=== PATIENT | female | born 1970 | race Caucasian/White ===

== ENCOUNTER → 2016-09-09 | Outpatient (CLI) | payer BC ==
[~2016-09-09] MED LIST: LOSA100T26 PO; SIMV40TA4 PO
--- NOTE | 2016-09-09 13:59 | MAMMOGRAPHY REPORT ---
UNILATERAL RIGHT DIGITAL DIAGNOSTIC MAMMOGRAM TOMOSYNTHESIS AND TARGETED RIGHT ULTRASOUND: 09/09/2016 CLINICAL HISTORY: Callback from screening mammogram for a right medial breast mass. TECHNIQUE: Breast tomosynthesis in addition to standard 2D mammography was performed. Spot eliazar sebastien right CC and MLO tomosynthesis images including C view were obtained. COMPARISON: Comparison is made to exams dated: 08/27/2016 mammogram, 05/14/2015 mammogram, 3 mammogram, 10/16/2014 mammogram, 04/06/2011 mammogram, and 04/02/2010 mammogram - [facility]. BREAST COMPOSITION: There are scattered areas of fibroglandular density in the right breast. FINDINGS: The previously described triangular mass seen within the right lower inner breast, best s een on the cc view, is less prominent and no longer clearly evident on the spot compression views. Nodularity seen more posteriorly in the right medial breast is stable compared to prior exams includ ing the 2012 exam. Targeted ultrasound was performed of the right lower inner quadrant of the region of the mammographi c mass. No suspicious masses or other suspicious sonographic abnormalities are evident. No correla te for the mammographic mass is seen. IMPRESSION: ACR BI-RADS CATEGORY 2: BENIGN, TARGETED ULTRASOUND ACR BI-RADS CATEGORY 2: BENIGN The previously described right medial breast mass is less prominent and no longer clearly evident ma mmographically, without a corresponding sonographic abnormality evident. Findings are benign and li yvette represent a cyst which has decreased/resolved. There is no mammographic or targeted sonographi c evidence of malignancy. A 1 year screening mammogram is recommended. The patient has been verball y notified of the results. Approximately 10% of breast cancers are not detected with mammography. A negative mammographic repor t should not delay biopsy if a clinically suggestive mass is present. Shaneka Martinez M.D. ah/:09/09/2016 12:14:31 Spinning Supervisor: Elida BARAJAS(Regine)(M), [facility] letter sent: Normal 1/2 BI-RADS Code: ACR BI-RADS Category 2: Benign Ultrasound BI-RADS: ACR BI-RADS Category 2: Benign
== END | disposition home or self-care (01) ==
LOC: C.MAMM 09:59
PROVIDERS: ATTEND Obstetrics & Gynecology
DX: Z09 Encounter for follow-up examination after completed treatment for conditions other than malignant neoplasm (principal); N63 Unspecified lump in breast

== ENCOUNTER → 2016-09-18 | Outpatient (CLI) | payer BC ==
--- NOTE | 2016-09-18 11:18 | DIAGNOSTIC IMAGING REPORT ---
CHEST 2 VIEWS ROUTINE CLINICAL HISTORY: Asthma. Shortness of breath. COMPARISON STUDY: No previous studies for comparison. FINDINGS: Lung volumes are normal. Lungs are clear. There is no pneumothorax or pleural effusion. Cardiac size is normal. Mediastinal contours are normal. There is no evidence of pulmonary edema. IMPRESSION: No acute cardiopulmonary findings. Electronically signed by: Man Durant M.D. 09/18/2016 11:16 AM Dictated Date/Time: 09/18/2016 11:15 AM
== END | disposition home or self-care (01) ==
LOC: C.RADBC 11:02
PROVIDERS: ATTEND Family Medicine
DX: J45.901 Unspecified asthma with (acute) exacerbation (principal)

== ENCOUNTER → 2016-10-15 | Outpatient (CLI) | payer BC ==
[~2016-10-15] VITALS: Ht 152.4 cm; Wt 100.0 kg
[2016-10-15 13:37] VITALS: BP 126/83; PULSE 83; Ht 152.4 cm; Wt 100.0 kg
== END | disposition home or self-care (01) ==
LOC: C.NEUR 13:13
PROVIDERS: ATTEND Internal Medicine Pulmonary Disease
DX: G47.61 Periodic limb movement disorder (principal); R40.0 Somnolence

== ENCOUNTER → 2016-10-29 | Outpatient (CLI) | payer BC ==
--- NOTE | 2016-10-30 05:47 | PAP/PSG TECHNICIAN REPORT ---
[facility] Chairman Ceo Polysomnogram Report Study name: None Report date: 10/30/2016 Study date: 10/29/2016 Referring Physician: DR. THEODORE Name: ZENAIDA HAWTHORNE Interpreting Physician: Paxton Wright M.D. Date of : 1970 Chairman Ceo: Vika Jean [facility]. Sex: Female Age: 45 Study Type: PSG Weight: 220 lbs 15.5 in Height: 45 years, Height 5' 0" Neck Circum: BMI: 42.96 Medications: ASPIRIN 81 MG, FISH OIL, LISINOPRIL-HCTZ 10-12.5 MG, MULTI VIT, PROAIR HFA, SIMVASTATIN 40 MG, VALTREX 1 GM Patient History 45 yr-old female here for a baseline/split study. She has a history of excessive daytime sleepiness and loud snoring. Her [place] scale is 17. The test was started on room air. ETCO2 testing was not utilized during this study. Room 3 Parameters Monitored NPSG: E1-M2, E2-M1, Fp1-M2, Fp2-M1, F3-M2, F4-M2, F4-M1, C3-M2, C4-M2, C4-M1, O1-M2, O2-M2, O2-M1, T3-M2, T4-M1, P3-M2, P4-M1, CHIN1, CHIN2, HR, EKG, Legs, PFLOW, SNOR, FLOW, CFLOW, Tidal Volume, THOR, ABDO, SpO2, PLTH, CPRESS, ETCO2 Wave, ETCO2, pH Sleep Architecture Sleep Stages Time at Lights Off 10:41:47 PM STAGES Time (min.) TST (%) Time at Lights On 5:23:47 AM Wake 27.5 -- Total Recording Time (TRT) 402.00 min. N1 14.5 4 Total Sleep Period (TSP) 381.5 min. N2 243.5 65 Total Sleep Time (TST) 374.5min. N3 43.5 12 Awake Time 27.5 min. REM 73.0 19 Wake after Sleep Onset 20.0 min. Sleep Efficiency (SE) 93 % Sleep Onset Latency (CORRIE) 7.5 min. Number of Stage 1 Shifts None Awakenings 8 Stage Changes 48 Number of REM periods 4 REM 73.0 19 REM Latency 81.5 min. NREM 301.5 81 Body Position Analysis Supine Right Left Side Prone Vertical Total Sleep Time (min.) 88.9 139.6 109.2 248.80 55.7 0.0 Total Sleep Time (%) 19% 37% 29% 66 15% N/A% Total Sleep Time REM (min.) 6.0 25.4 19.0 None 22.6 0.0 Total Sleep Time NREM (min.) 64.5 114.2 90.2 None 32.6 0.0 Intermittent Wake (min.) 18.4 4.8 3.8 None 0.5 0.0 Total Sleep Period (%) 19% None None None None None Arousals Myoclonus (PLM) * Events Count Index Events Count Index Spontaneous 11 2 Events Awake (PLMW) 24 52.4 Respiratory 4 0.6 Events Asleep w/ Arousal (PLMA) 9 1.4 PLM 9 1 Events Asleep w/o Arousal (PLMS) 106 17.0 Snoring 0 0 Total Asleep 115 18.4 Total 24 4 Total 139 21 Respiratory Analysis * CA OA MA CH H RERA Total Count 0 4 0 0 34 2 38 Index 0.0 0.6 0.0 0 5.4 0 6.4 Mean Duration 0.0 14.2 0.0 0.00 19.5 20.2 19.0 Longest Duration 0.0 15.6 0.0 0.00 0.0 22.1 38.5 Respiratory Event Summary Total Supine ~Supine Right Left Prone REM NREM Apneas Count 4 0 4 3 1 0 3 1 Index 0.6 0 1 1.3 0.5 0 2 0 Hypopneas (4% Desat) Count 34 2 32 7 19 6 30 4 Index 5.4 1.7 6 3.0 10.4 6.5 24.7 0.8 Apneas & All Hypopneas Count 38 2 36 10 20 6 33 5 Index 6.1 2 7 4 11 7 27.1 1.0 Respiratory Events (Resident Surgeon+All Hyp+RERA) Count 38 2 38 11 21 6 33 5 Index 6.4 2 8 4.7 11.5 6.5 28.8 1.0 Respiratory Related Arousal Count 4 2 4 1 3 0 3 1 Index 0.6 0 1 0 2 0 2 0 Snoring Analysis Supine Right Left Prone REM NREM Total Snore duration 38.3 min Snores count 143 873 856 148 366 1,654 2,020 Snore mean duration 1.1 Sec Snores index 122 375 470 161 300.8 329.2 323.6 TST with snoring (%) 10.2% Desaturation Event Summary: Minimum %SpO2 Event Count Mean/Min/Max Duration(sec.) Desaturation Index % Time In Bed > 90 44 28.8 / 8.5 / 58.3 7.2 93.5 86 - 90 14 17.0 / 8.5 / 30.0 35.9 6.0 81 - 85 0 N/A 0.0 0.6 76 - 80 0 N/A 0.0 0.0 71 - 75 0 N/A 0.0 0.0 66 - 70 0 N/A 0.0 0.0 61 - 65 0 N/A 0.0 0.0 56 - 60 0 N/A 0.0 0.0 51 - 55 0 N/A 0.0 0.0 < 50 0 N/A 0.0 0.0 Total REM NREM Awake <50% 0.0 min. 0.0 min. 0.0 min. 0.0 min. 51 - 60% 0.0 min. 0.0 min. 0.0 min. 0.0 min. 61 - 70% 0.0 min. 0.0 min. 0.0 min. 0.0 min. 71 - 80% 0.0 min. 0.0 min. 0.0 min. 0.0 min. 81 - 90% 25.6 min. 20.1 min. 5.3 min. 0.2 min. 91 - 100% 366.2 min. 52.9 min. 296.2 min. 17.1 min. Average 93 92 93 95 Minimum SpO2 81 81 88 90 Desaturation Event Index 7.8 32.9 2.2 2.2 # Desat. Events below 89% 28 25 3 N/A Time(%) with Saturation below 89% 2.3 2.2 0.1 0.0 Time(min.) with Saturation below 89% 9.0 8.7 0.3 0.0 Time (mins) REM (mins) NREM (mins) % of TST SpO2 Below 90% 41 34 N7 3.7 SpO2 Below 88% 11 0 0 1 Heart Rate Analysis Min (bpm) Max (bpm) Average (bpm) Awake 68 116 84 NREM 53 110 69 REM 61 115 73 Overall 53 115 70 Supplemental O2 Values Minimum O2 level: None Value Start Time End Time Chairman Ceo Comments Ms. Hawthorne slept in the right, supine and prone positions. No cardiac arrhythmias were noted. PLMs were noted. No bruxism noted. Snoring was noted and scored as a 3 on a scale of 1 through 5. (0=no snoring, 5=snoring loud enough to be heard through a closed door or down the [address] way). She did not meet specific Split-Night criteria during the diagnostic portion of this study. She awoke to use the restroom one time during the night. Ms. Hawthorne stated that she slept about the same as usual. The final report will be interpreted and signed by a sleep physician. The completed physician report will then be placed in the patient medical record. Therapy (cm H2O) 0 TIB (min.) 402.0 TST (min.) 374.5 Sleep Onset (min.) 7.5 REM Onset From Sleep (min.) 81.5 Sleep Efficiency % 93 Wakefulness (%) 7 Wakefulness (min.) 27.5 NREM 1 (%) 4 NREM 1 (min.) 14.5 NREM 2 (%) 65 NREM 2 (min.) 243.5 NREM 3 (%) 12 NREM 3 (min.) 43.5 REM (%) 19 REM (min.) 73.0 # Arousals 24 Arousal Index 4 # Snore 2,020 Snore Index 323.6 AHI 6.1 AHI Supine 2 AHI Non-Supine 7 NREM AHI 1.0 REM AHI 27.1 RDI 6.4 # Obstructive Apnea 4 # Central Apnea 0 # Mixed Apnea 0 # Hypopneas 34 RERAs 2 Total Respiratory Events 40 Time Below SpO2 89% (min.) 9.0 Mean NREM SpO2 (%) 93 Mean REM SpO2 (%) 92 Mean Sleep SpO2 (%) 93 Min NREM SpO2 (%) 88 Min REM SpO2 (%) 81 Position Supine (min.) 88.9 Position Non-supine (min.) 304.0 LM Index Sleep 18.4 LM Index NREM 20.3 LM Index REM 10.7 Mean Heart Rate (bpm) 70 Min Heart Rate (bpm) 53
--- NOTE | 2016-10-30 14:49 | POLYSOMNOGRAPH REPORT ---
CLINICAL DATA: A 45-year-old female with BMI of 43, referred by Dr. Varma for a baseline sleep study with excessive daytime sleepiness and loud snoring. Her [place] sleepiness score was 17/24. SLEEP ARCHITECTURE: Total sleep period was 381.5 minutes. Total sleep time was 374.5 minutes divided between 301.5 minutes of non-REM sleep and 73 minutes of REM sleep. Sleep onset latency was 7.5 minutes. REM latency was 81.5 minutes. Sleep efficiency was 93%. Wake after sleep onset was 20 minutes. Sleep consisted of stage N1 4%, N2 65%, N3 12%, and REM 19%. AROUSAL DATA: 24 arousals were recorded for an index of 4 per hour. PLM DATA: Very mildly elevated limb movements during sleep were noted. There were 115 limb movements during sleep noted for an index of 18.4 per hour with arousal index of 1.4 per hour. RESPIRATORY DATA: Very mild sleep apnea was documented. The AHI was 6.1. The RDI was 6.4. There were 4 obstructive apneic episodes. The longest duration of apnea was 15.6 seconds. There were 34 hypopneic episodes. The mean duration of hypopnea was 19.5 seconds. There were 2 RERAs. The longest RERA was 22.1 seconds. OXIMETRY DATA: Nocturnal hypoxemia was seen. Oxygen shira was 81% during REM. The mean saturation was 93%. Time below 88% was 1 minutes. EKG: Heart rates ranged from 53-115 beats per minute. No arrhythmias were noted. ROOFING PLANT SUPERVISOR'S COMMENTS: The patient slept in the right, supine, and prone positions. Snoring was moderate, rated 3 on a scale of 1 through 5. She did not meet split night criteria. IMPRESSION: Mild sleep apnea/hypopnea with nocturnal hypoxemia. RECOMMENDATIONS: The patient may benefit from weight loss, use of an oral appliance or repeat sleep study with CPAP. Clinical correlation is needed. [facility] HOSPITALJoanna
== END | disposition home or self-care (01) ==
LOC: C.NEUR 21:00
PROVIDERS: ATTEND Internal Medicine Pulmonary Disease
DX: G47.61 Periodic limb movement disorder (principal); G47.30 Sleep apnea, unspecified; R09.02 Hypoxemia

== ENCOUNTER → 2016-11-05 | Outpatient (CLI) | payer BC ==
[~2016-11-05] VITALS: Ht 152.4 cm; Wt 100.4 kg
[2016-11-05 13:46] VITALS: BP 132/84; PULSE 96; Ht 152.4 cm; Wt 100.4 kg
== END | disposition home or self-care (01) ==
LOC: C.NEUR 13:32
PROVIDERS: ATTEND Internal Medicine Pulmonary Disease
DX: G47.30 Sleep apnea, unspecified (principal); J45.909 Unspecified asthma, uncomplicated

== ENCOUNTER → 2017-02-19 | Outpatient (CLI) | payer BC ==
[~2017-02-19] VITALS: Ht 152.4 cm; Wt 97.5 kg
[~2017-02-19] MED LIST changes: -LOSA100T26 PO; +LOSA100T33 PO
[2017-02-19 14:13] VITALS: BP 143/86; PULSE 101; Ht 152.4 cm; Wt 97.5 kg
== END | disposition home or self-care (01) ==
LOC: C.NEUR 13:50
PROVIDERS: ATTEND Physician Assistant
DX: G47.30 Sleep apnea, unspecified (principal)

== ENCOUNTER → 2017-11-17 | Outpatient (CLI) | payer BC ==
--- NOTE | 2017-11-18 15:07 | MAMMOGRAPHY REPORT ---
BILATERAL DIGITAL SCREENING MAMMOGRAM TOMOSYNTHESIS WITH CAD: 11/17/2017 CLINICAL HISTORY: Routine screening. Patient has no complaints. TECHNIQUE: Breast tomosynthesis in addition to standard 2D mammography was performed. Current study was also evaluated with a Computer Aided Detection (CAD) system. COMPARISON: Comparison is made to exams dated: 09/09/2016 mammogram, 08/27/2016 mammogram, 05/14/2015 mammogram, 11/09/2014 mammogram, 04/06/2011 mammogram - [facility], and 06/09/2007. BREAST COMPOSITION: There are scattered areas of fibroglandular density in both breasts. FINDINGS: No suspicious masses, calcifications, or areas of architectural distortion are noted in ei ther breast. There has been no significant interval change compared to prior exams. Bilateral asymme tries are stable, including an asymmetry within the left superior and slightly lateral breast middle depth which is stable compared to multiple prior exams including the 2009 exam and considered benign given long-term stability. IMPRESSION: ACR BI-RADS CATEGORY 2: BENIGN There is no mammographic evidence of malignancy. A 1 year screening mammogram is recommended. The pa tient will receive written notification of the results. Approximately 10% of breast cancers are not detected with mammography. A negative mammographic report should not delay biopsy if a clinically suggestive mass is present. Shaneka Martinez M.D. /:11/18/2017 07:39:40 Plisse Machine Operator: Khushboo FENG)(Clive), [facility] letter sent: Normal 1/2 BI-RADS Code: ACR BI-RADS Category 2: Benign
== END | disposition home or self-care (01) ==
LOC: C.MAMM 17:15
PROVIDERS: ATTEND Family Medicine
DX: Z12.31 Encounter for screening mammogram for malignant neoplasm of breast (principal)

== ENCOUNTER 2021-02-17 10:15 | Observation (INO) ==
--- NOTE | 2021-02-10 16:35 | Anesthesiology Consultation ---
Date of Service February 10, 2021 Assessment & Plan (1) Encounter for pre-operative examination: COVID screening: Per assessment on 02/07: Travel screen negative, no known COVID- 19 positive contacts or current COVID-19 related symptoms. Surgeon arranging preop COVID testing (scheduled 02/13; CT). Awaiting results. Chart Review Chart Review: Acceptable Risk for Surgery and Patient NOT seen in Pre Admission Testing History Surgery Operation Date: 02/17/21 11:50 Proposed Procedures p Panniculectomy - Ruchi Hardy MD Height/Weight Height: 5 ft Weight: 86.183 kg Allergies Allergy/AdvReac Type Severity Reaction Status Date / Time atorvastatin AdvReac Intermediate dizzy Verified 02/07/21 14:16 Medications Home Medications Medication Instructions Recorded Confirmed Last Taken montelukast 10 mg tablet 10 mg PO QPM 08/16/19 02/07/21 11/14/20 simvastatin 40 mg tablet 40 mg PO QPM 08/16/19 02/07/21 11/14/20 atenolol 25 mg tablet 25 mg PO PM 02/04/21 02/07/21 Unknown ondansetron HCl 4 mg tablet 4 mg PO Q6H PRN 3 Days #12 tab 02/04/21 02/07/21 Unknown oxycodone-acetaminophen 5 mg-325 1 tab PO Q4H PRN 3 Days #18 tab 02/04/21 02/07/21 Unknown mg tablet albuterol sulfate 1 inh INHALATION QID PRN 02/07/21 02/07/21 Unknown aspirin [Aspir-81] 81 mg PO PM 02/07/21 02/07/21 Unknown multivitamin 1 tab PO PM 02/07/21 02/07/21 Unknown omega-3 fatty acids [Fish Oil] 1,000 mg PO PM 02/07/21 02/07/21 Unknown Past Medical History Medical History Asthma well controlled Cardiac murmur No murmur noted per 11/15/20 [facility] anesthesia evaluation History of COVID-19 Dx 08/02/21 (preop testing for colonoscopy) > was asymptomatic Hyperlipidemia Hypertension Obesity Osteoarthritis Sleep apnea No device Past Family History Family History Mother Heart disease Father Heart disease Sister Breast cancer Other No family history of adverse response to anesthesia Denies family history of Ovarian cancer Colorectal cancer Past Surgical History Surgical History History of cholecystectomy History of colonoscopy S/P tooth extraction Status post hysteroscopic ablation of endometrium 2011 Status post tubal ligation Social History Smoking Status: Never smoker Do You Dip or Chew Tobacco: No Hx Alcohol Use: No Hx Substance Use: No substance use type: does not use Lab Results Anesthesia Preop Results Results Anesthesia Widget: WBC 4.52 K/uL (4.8-10.8) L 02/07/21 Hgb 13.6 g/dL (12.0-16.0) 02/07/21 Hct 40.6 % (37-47) 02/07/21 Plt 216 K/uL (130-400) 02/07/21 Na 137 mmol/L (136-145) 02/07/21 K 3.4 mmol/L (3.5-5.1) L 02/07/21 Cl 104 mmol/L (98-107) 02/07/21 CO2 30 mmol/L (21-32) 02/07/21 BUN 10 mg/dl (7-18) 02/07/21 Creat 0.67 mg/dl (0.6-1.2) 02/07/21 Glucose Level 92 mg/dl (70-99) 02/07/21 PT 9.8 Seconds (9.0-12.0) 02/07/21 PTT 27.0 Seconds (21.0-31.0) 02/07/21 INR 1.0 (0.9-1.1) 02/07/21 Testing Electrocardiogram Date: 02/07/21 Findings: + NSR @ (28)
[~2021-02-17 10:15] MED LIST changes: +DEXAMETHASONE SOD INJ 4 MG/ML VIAL ONE; +HYDROmorphone INJ 1 MG/ML SYRINGE ONE; -LOSA100T33 PO; +LR 15ML/HR IV SCH; +METOCLOPRAMIDE HCL INJ 5 MG/ML 2 ML VIAL ONE; +MIDAZOLAM HCL 1 MG/ML 2ML VIAL ONE; +ONDANSETRON INJ 2 MG/ML 2 ML VIAL ONE; +PROPOFOL IV EMULSION 10 MG/ML 20 ML VIAL IV ONE; +ROCURONIUM BROMIDE 10 MG/ML 5 ML VIAL IV ONE; -SIMV40TA4 PO; +ceFAZolin 2000MG 2,000 MG/15 ML SYR IV SCH; +fentaNYL citrate 100 MCG/2 ML VIAL ONE
[2021-02-17] MEDS ORDERED: fentaNYL citrate 100 MCG/2 ML VIAL ONE (10:21)
[2021-02-17] MEDS ORDERED: HYDROmorphone INJ 1 MG/ML SYRINGE ONE (10:27)
--- NOTE | 2021-02-17 11:15 | History & Physical Bridge Note ---
Date of Service February 17, 2021 History & Physical Bridge Note I have examined the patient, reviewed the History & Physical and in the interval since the performance of the History & Physical I have noted the following changes of clinical significance: no changes noted
[2021-02-17] MEDS ORDERED: EPINEPHrine INJ 1 MG/ML AMP ONE (11:23)
[2021-02-17] MEDS ORDERED: LIDOCAINE 1% LOCAL 20 ML VIAL ONE (11:23)
[2021-02-17] MEDS ORDERED: LIDOCAINE/EPINEPHRINE 1% 20 ML VIAL ONE (11:24)
[2021-02-17] MEDS ORDERED: BUPIVACAINE 0.25% 30 ML VIAL ONE (11:24)
[2021-02-17] MEDS ORDERED: PROMETHAZINE HCL 6.25 MG in SODIUM CHLORIDE 0.9% 50 ML IV PRN (11:29)
[2021-02-17] MEDS ORDERED: fentaNYL citrate 100 MCG/2 ML VIAL IV PRN (11:29)
[2021-02-17] MEDS ORDERED: ePHEDrine sulfate 50 MG/ML AMP IV PRN (11:29)
[2021-02-17] MEDS ORDERED: ONDANSETRON INJ 2 MG/ML 2 ML VIAL IV PRN ×2 (11:29→15:40)
[2021-02-17] MEDS ORDERED: ATROPINE SULFATE 0.1 MG/ML 10ML SYR IV PRN (11:29)
[2021-02-17] MEDS ORDERED: HYDROmorphone INJ 2 MG/ML SYR/VIAL IV PRN (11:29)
[2021-02-17] MEDS ORDERED: FAMOTIDINE/PF 20 MG/2 ML VIAL IV ONE (11:32)
[2021-02-17] MEDS ORDERED: ACETAMINOPHEN 1000 MG/100 ML IV IV ONE (11:32)
[2021-02-17] MEDS ORDERED: SCOPOLAMINE 1 MG TDSY TD ONE (11:33)
[2021-02-17] MEDS ORDERED: PHENYLEPHRINE 100MCG/ML 5ML SYR ONE (12:48)
[2021-02-17] MEDS ORDERED: ePHEDrine sulfate 50 MG/ML SYR ONE (12:59)
[2021-02-17] MEDS ORDERED: THROMBIN FOR SOLN 20000 UNIT KIT ONE (13:00)
[2021-02-17] MEDS ORDERED: GLYCOPYRROLATE 0.2 MG/ML VIAL ONE (13:51)
[2021-02-17] MEDS ORDERED: NEOSTIGMINE METHYLSULFATE 1 MG/ML 10ML VIAL ONE (13:52)
--- NOTE | 2021-02-17 14:15 | Post Operative Brief Note ---
PG Immediate Post Op with CF Date of Surgery February 17, 2021 Pre & Post Diagnosis Operation Date: 02/17/21 11:50 Pre-Op Diagnosis: Abdominal Pannus Post-Op Diagnosis: Abdominal Pannus I identified the patient and participated in the time-out.: Yes Procedure Operation Date: 02/17/21 11:50 Actual Procedures p Panniculectomy(Not Applicable) - Ruchi Hardy MD Surgeon Ruchi Hardy MD Supervisor Pastry Yamilex Degroot PA-C Estimated Blood Loss 50 Findings Consistent with Post-Op Diagnosis Specimens Specimen Description: A. Pannus Drains Mak Drain and Louis Catheter
--- NOTE | 2021-02-17 14:35 | Operative Report ---
PG Post Operative Report Pre & Post Diagnosis Operation Date: 02/17/21 11:50 Pre-Op Diagnosis: Abdominal Pannus Post-Op Diagnosis: Abdominal Pannus I identified the patient and participated in the time-out.: Yes Procedure Operation Date: 02/17/21 11:50 Actual Procedures p Panniculectomy(Not Applicable) - Ruchi Hardy MD Surgeon Ruchi Hardy MD Hand Bookbinder Yamilex Degroot PA-C Estimated Blood Loss 50 Findings Consistent with Post-Op Diagnosis Specimens abdominal pannus Drains JPx2 Anesthesia Type General Complications none Disposition Disposition: Recovery Room Indications overhanging abdominal pannus, intertrigo Description of Procedure Risks, benefits, and alternatives of the procedure were explained to the patient who agreed and signed consent. She was identified and marked in the preoperative holding area. She was brought to the operating room where she was positioned supine and placed under general anesthesia without incident. Louis catheter was placed. Surgical site was prepped and draped sterilely. A time-out procedure was performed. I reassessed my markings which included a lower horizontal abdominal incision with the midportion 7 cm above the vulvar commissure. Incision was marked bilaterally to the ASIS. I began by injecting 1% lidocaine with epinephrine along the planned incision. The lower abdominal incision was made using a 15-blade scalpel to incise epidermis and superficial dermis followed by electrocautery to incise deep dermis, subcutaneous fat, Dawood's fascia down to the abdominal wall. Care was taken to bevel superiorly in order to avoid encountering the inguinal region. Electrocautery was used to elevate the anterior abdominal skin flap ligating the perforating vessels with 3-0 Vicryl ties and electrocautery. Dissection was carried up to the level of the umbilicus in the midline. At this point, a 15-blade scalpel was used to circumscribe the umbilicus. A vertical midline incision was then made from the incision to the umbilicus and divided in the midline using electrocautery. The umbilicus was then dissected out using electrocautery down to abdominal wall. The umbilical stalk appeared viable throughout the procedure. In order to facilitate inset of the umbilicus, dissection was continued for about an additional 5 cm superior to the umbilicus. At this point, the bed was flexed and the mid portion of the superior skin flap was inset above the mons pubis using 2-0 Vicryl suture. Skin flaps were marked for excision. A 15-blade scalpel was used to make these incisions and the incision was deepened through dermis, subcutaneous fat, Dawood's fat using electrocautery. A 15 Ukrainian Mak drains were placed in the wound bed and brought out through a separate stab incision in the mons pubis. The drains were sutured into place using 3-0 nylon. The umbilicus was brought out through an inverted triangular incision in the abdominal wall. Prior to closure, a total of 10 mL of 0.25% Marcaine plain were injected into the fascia as well as along the incisions. Wound closure was then begun lateral to medial using 2-0 Vicryl Dawood's fascia sutures, 2-0 Vicryl deep dermal sutures, 2-0 PDO running superficial Quill suture, 3-0 Monocryl running subcuticular suture. Umbilicus was brought out through the inverted triangle incision and was sutured into place using 4-0 chromic half buried horizontal mattress sutures. The umbilicus was dressed using Xeroform and the incision was dressed using Dermabond Prineo followed by dry dressings and an abdominal binder. The procedure was tolerated well. The patient was awakened and transferred to recovery in satisfactory condition. Yamilex Degroot was present and scrubbed throughout the entire procedure and was instrumental in providing retraction of the pannus and assisting in simultaneous wound closure. I attest to the content of the Intraoperative Record and any orders documented therein. Any exceptions are noted below.
--- NOTE | 2021-02-17 14:50 | Surgery Progress Note ---
Date of Service February 17, 2021 Assessment & Plan (1) S/P panniculectomy: S/P abdominal panniculectomy 1. remain in semi-hernandez position tonight 2. hernandez removal in AM 3. anticipate d/c home in AM Subjective Gina is seen in the PACU. She is awake and oriented. VSS. She reports minimal discomfort. Physical Exam Physical Exam: incision CDI, no drainage on outer gauze, scant drainage in drains Results & Data ([facility]) Vital Signs (Past 12 Hours) Vital Signs Temp Pulse Pulse Resp BP Pulse Ox 02/17/21 14:40 87 16 113/82 100 02/17/21 14:30 36.1 C L 110 H 15 120/68 100 02/17/21 10:39 37.0 C 88 20 147/86 H 97 PG Care Time/CCT Total # of Minutes Spent Total Time Spent with Patient: Total time spent is greater than 50% in coordination of care (as documented) at patient's floor/unit and/or counseling patient: Coding Level of Care Code None Diagnoses S/P panniculectomy Z98.890
--- NOTE | 2021-02-17 15:16 | Anesthesiology Progress Note ---
Date of Service February 17, 2021 Anesthesia Post Procedure Vital Signs Vital Signs: Temp Pulse Pulse Resp BP Pulse Ox 02/17/21 15:10 36.7 C 99 H 17 127/73 98 02/17/21 15:00 70 13 115/66 92 02/17/21 14:50 92 H 12 126/67 100 02/17/21 14:40 87 16 113/82 100 02/17/21 14:30 36.1 C L 110 H 15 120/68 100 02/17/21 10:39 37.0 C 88 20 147/86 H 97 Pain Intensity Abdomen: Pain Intensity: 2 Transfer of Care Handoff Completed per policy Notes Mental Status: alert / awake / arousable Patient Amnestic to Procedure: Yes Nausea / Vomiting: adequately controlled Pain: adequately controlled Airway Patency, RR, SpO2: stable & adequate BP & HR: stable & adequate Hydration State: stable & adequate Anesthetic Complications: no major complications apparent
[2021-02-17] MEDS ORDERED: oxyCODONE/ACETAMINOPHEN 5mg/325mg TAB PO PRN (15:40)
[2021-02-17] MEDS ORDERED: diphenhydrAMINE 50 MG/ML VIAL IV PRN (15:40)
[2021-02-17] MEDS ORDERED: LORazepam 0.5 MG TAB PO PRN (15:40)
[2021-02-17] MEDS ORDERED: diphenhydrAMINE Capsule 25 MG CAP PO PRN (15:40)
[2021-02-17] MEDS ORDERED: ACETAMINOPHEN 325 MG TAB PO PRN (15:40)
[2021-02-17] MEDS ORDERED: MoRPHine SULFATE 4 MG/ML 1 ML CARP\\VIAL IV PRN (15:40)
[2021-02-17] MEDS ORDERED: PROMETHAZINE HCL 12.5 MG in SODIUM CHLORIDE 0.9% 50 ML IV PRN (15:40)
[2021-02-17] MEDS: D5W AND 1/2NSS 1,000 ML IV SCH (16:17)
[2021-02-17] MEDS: MoRPHine SULFATE 2 MG/ML CARP IV PRN (19:05)
[2021-02-17] MEDS: ceFAZolin 2000MG 2,000 MG/15 ML SYR IV SCH (20:09)
[2021-02-17] MEDS ORDERED: ATENOLOL 25 MG TABLET PO SCH (21:00)
[2021-02-17] MEDS ORDERED: SIMVASTATIN 40 MG TAB PO SCH (21:00)
[2021-02-17] MEDS ORDERED: MONTELUKAST SODIUM 10 MG TABLET PO SCH (21:00)
[2021-02-18] MEDS: MoRPHine SULFATE 2 MG/ML CARP IV PRN ×2 (01:27→09:04)
[2021-02-18] MEDS: D5W AND 1/2NSS 1,000 ML IV SCH (03:16)
[2021-02-18] MEDS: ceFAZolin 2000MG 2,000 MG/15 ML SYR IV SCH (03:16)
[2021-02-18] MEDS: oxyCODONE/ACETAMINOPHEN 5mg/325mg TAB PO PRN ×2 (06:11→11:33)
--- NOTE | 2021-02-18 08:17 | Surgery Progress Note ---
Date of Service February 18, 2021 Assessment & Plan (1) S/P panniculectomy: Admission and Anticipated Discharge Date Admission Date: February 17, 2021 POD#1 s/p panniculectomy 1. d/c home today, office follow-up tomorrow. post-op instructions were reviewed with the patient Subjective Patient is resting in chair. Louis was removed this AM and she has ambulated to bathroom. Tolerating regular diet. Pain is controlled. VSS Physical Exam Constitutional: WD/WN, vitals as above Skin: + incision (CDI, no erythema, drains with min output) Results & Data ([facility]) Vital Signs (Past 12 Hours) Vital Signs Temp Pulse Resp BP Pulse Ox 02/18/21 07:06 36.6 C 65 16 99/64 L 96 02/18/21 03:22 36.7 C 60 16 104/70 95 02/18/21 03:08 36.7 C 54 L 16 97/61 L 96 02/17/21 22:30 36.7 C 63 16 95/61 L 95 PG Care Time/CCT Total # of Minutes Spent Total Time Spent with Patient: Total time spent is greater than 50% in coordination of care (as documented) at patient's floor/unit and/or counseling patient: Coding Level of Care Code None Diagnoses S/P panniculectomy Z98.890
[2021-02-18] MEDS ORDERED: MULTIVITAMIN TAB PO SCH (09:00)
--- NOTE | 2021-02-18 15:20 | Discharge Summary ---
Date of Service February 18, 2021 Admission HPI Per Admitting Provider see admission H&P Admission Exam Per Admitting Provider see admission H&P Principal Diagnosis abdominal pannus Discharge Exam Constitutional WD/WN, vitals as above Skin + incision (CDI, no erythema, drains with min output) Discharge Data Allergies Allergy/AdvReac Type Severity Reaction Status Date / Time atorvastatin AdvReac Intermediate dizzy Verified 02/17/21 10:33 Procedures Performed Operation Date: 02/17/21 11:50 Actual Procedures p Panniculectomy(Not Applicable) - Ruchi Hardy MD Hospital Course (1) S/P panniculectomy: Patient presented to [facility] with history of abdominal pannus. She was taken to the OR and underwent panniculectomy. There were no intraoperative complications. She was taken to recovery and transferred to med/surg for observation. On POD#1, she was feeling well. She was tolerating a regular diet and ambulating. She was able to void after catheter was removed. On exam, her vitals were stable. Her incisions were CDI. Her drains had appropriate output. She was discharged home with instructions to follow-up in the office in one day. Total Time Total Time Spent Total Time Spent (In Minutes): 20 Total Time Includes: Examination of the Patient, Discharge Planning, Medication Reconciliation and Communication With Other Providers Discharge Plan Discharge Items Patient Disposition: Home - Self-Care Reason For Visit: Abdominal Pannus Discharge Diagnosis: s/p panniculectomy Activity: As commented below Non-emergency contact: Surgeon Call non-emergency contact if: you have any medication questions, your pain is not controlled, you have a fever, your wound has increased redness and your wound has increased drainage Follow-up/Referrals: Yamilex Degroot PA-C [Physician Improvement Manager] - 02/19/21 2:00 pm (Priti Zeng) Janey Trejo DO [Primary Care Provider] - 02/25/21 9:30 am (Shahana Wayne will see you for your PCP follow up appt. If you cannot keep this appt, please phone [phone] to reschedule.) Diet: Regular Addtl Attending Provider Instructions: ACTIVITY RECOMMENDATIONS: __Normal activities _x_No bending, lifting or straining __No driving __Driving allowed when you are off pain medications __Walking permitted __You should have help at home for ___ days DRESSINGS: __No dressings required _x_Keep dressings dry/in place until first office visit. Keep your abdominal binder in place __Remove dressings ___ and leave dressings off __Apply ice ___ days __Remove dressings and reapply garment __Apply antibiotic ointment (Bacitracin, Neosporin, etc) to wounds 3-4 times/day for 10 days BATHING: _x_Keep dressings dry _x_Sponge bathing permitted away from incisions __Showering permitted _x_No swimming, hot tubs or soaking in a tub MEDICATIONS: Resume previous medications unless instructed otherwise by your surgeon. _x_Do not use aspirin, Motrin, Advil or Ibuprofen as these may promote bleeding. Please use Tylenol. _x_Prescription(s) provided: pain medication was provided at your last office visit OTHER INSTRUCTIONS: _x_Record drain output 2-3 times per day. We will review criteria for drain removal at your post-op visit tomorrow SPECIAL CARE INSTRUCTIONS: * It is normal to have a mild fever after surgery. If your temperature is higher than 101.5 degrees F, please call the office at [phone]. * Constipation is a typical side effect of pain medication. An [id number] stool softener will help relieve this. * Leaking around surgical drains may occur and should not cause concern. Sometimes these drains become clogged. If this happens, remove the bulb and milk the clot out of the tube, then replace the bulb. * Drainage from wounds after liposuction is normal and should be expected. Garments will become soiled. You should protect furniture and bedding. This drainage should mostly subside within 2-3 days. Leave garments in place unless instructed to remove them. * If you have unusual drainage from a wound or are concerned you have an infection or have any questions or concerns, please call the office at [phone]. FOLLOW UP VISIT: If not already scheduled, please call the office, , when you return home after surgery to schedule an appointment to be seen in _1__ days. Pending Studies at Discharge: Yes Studies:: pathology Stand-Alone Forms: [facility], Opioid Pain Management, Smoking Cessation Medications and DC Order Prescriptions: Continued montelukast [Singulair] 10 mg tablet 10 mg PO QPM RF: 0 simvastatin 40 mg tablet 40 mg PO QPM RF: 0 atenolol 25 mg tablet 25 mg PO PM RF: 0 oxycodone-acetaminophen [Percocet] 5-325 mg tablet 1 tab PO Q4H PRN (Reason: pain) 3 Days Qty: 18 RF: 0 ondansetron HCl [Zofran] 4 mg tablet 4 mg PO Q6H PRN (Reason: nausea and vomiting) 3 Days Qty: 12 RF: 0 multivitamin Tablet 1 tab PO PM RF: 0 albuterol sulfate 90 mcg/actuation Hfa Aerosol Inhaler 1 inh INHALATION QID PRN (Reason: Wheezing) RF: 0 Zovirax 2 tab PO AMPM PRN (Reason: cold sore.) RF: 0 Discontinued aspirin [Aspir-81] 81 mg Tablet,Delayed Release (Dr/Ec) 81 mg PO PM RF: 0 Fish Oil Capsule 1,000 mg PO PM RF: 0 Discharge Orders: Discharge Order (Routine); Ordered 02/18/21 Ordered By: Yamilex Tse/Other Patient Handouts: DVT Post Op Prevention Admission Data Admit Date/Time: 02/17/21 14:29 Attending Provider: Ruchi Hardy Admit Provider: Yamilex Degroot Primary Care Provider: Janey Trejo Other Interventions: Discharge Summary Assessment (RN) Last Done: 02/18/21 08:20 Coding Level of Care Code 22643 OBS Care - Discharge Diagnoses S/P panniculectomy Z98.890
== END 2021-02-18 12:05 | disposition home or self-care (01) ==
LOC: 3N 10:15 → ASU 10:15